=== PATIENT | female | born 1950 | race Caucasian/White ===

== ENCOUNTER 2018-09-03 02:17 | Inpatient (IN) | payer BC, MEDICARE ==
[~2018-09-03] VITALS: Ht 165.1 cm; Wt 70.0 kg
[2018-09-03] VITALS (19 sets, daily range): BP systolic 98–182; BP diastolic 50–100
--- NOTE | 2018-09-03 02:35 | NUR ---
Noted the analgesic administration prior to arrival to this ER. Patient cursing and slurring words, requesting something for "fucking pain". This was endorsed to ERP.
[2018-09-03] MEDS ORDERED: LIDOcaine 1% 30ml preserv. free vial IJ STA (02:40)
[2018-09-03] MEDS ORDERED: enalaprilat dihydrate 2.5mg/2ml vial IV PRN ×2 (04:45→16:25)
[2018-09-03] MEDS ORDERED: acetaminophen 325mg tablet PO PRN (04:45)
[2018-09-03] MEDS ORDERED: morphine/NS 5 mg/ml CADD 50 ML IV SCH (04:45)
[2018-09-03] MEDS ORDERED: naloxone 0.4 mg/ml inj IV PRN (04:45)
[2018-09-03] MEDS ORDERED: CADD PCA waste documentation MC PRN ×2 (04:45→23:25)
[2018-09-03] MEDS ORDERED: ondansetron/PF 4mg/2ml inj IV PRN ×3 (04:45→16:35)
[2018-09-03] MEDS ORDERED: LISI-600 PO (05:18)
[2018-09-03] MEDS ORDERED: DULO-31 PO (05:18)
[2018-09-03] MEDS ORDERED: METH5TAB2 PO (05:18)
[2018-09-03] MEDS ORDERED: AMIT-189 PO (05:18)
[2018-09-03] MEDS ORDERED: PHE12.5T PO (05:19)
[2018-09-03] MEDS: normal saline 1000ml 1,000 ML IV SCH ×3 (05:50→23:29)
--- NOTE | 2018-09-03 05:51 | NUR ---
patient report received and patient brought to room. skin checked and IV fluids started. Morphine ordered from pharmacy in order to start CADD.
[2018-09-03 06:47] LABS: INR 1.1 INR; PARTIAL THROMBOPLASTIN TIME 30 SECONDS (22-32); PROTHROMBIN TIME 10.7 SECONDS (9.0-12.0)
[2018-09-03 06:50] LABS: ALANINE AMINOTRANSFERASE 23 U/L (12-78); ALBUMIN 3.5 G/DL (3.4-5.0); ALBUMIN/GLOBULIN RATIO 1.2 (1.1-1.5); ALKALINE PHOSPHATASE 89 IU/L (46-116); ANION GAP 11 (8-16); ASPARTATE AMINO TRANSFERASE 27 U/L (10-37); BILIRUBIN,TOTAL 0.5 MG/DL (0.1-1.0); BLOOD UREA NITROGEN 15 MG/DL (7-18); BUN/CREATININE RATIO 10.9 (6.6-38.0); CALCIUM 9.2 MG/DL (8.5-10.1); CHLORIDE 104 MMOL/L (99-107); CREATININE 1.37 MG/DL (0.40-0.90); GLUCOSE 145 MG/DL (70-104); MAGNESIUM 1.5 MG/DL (1.5-2.4); POTASSIUM 4.2 MMOL/L (3.5-5.1); SODIUM 138 MMOL/L (135-145); TOTAL PROTEIN 6.5 G/DL (6.4-8.2); eGFR 38 ML/MIN
[2018-09-03 06:53] LABS: BASOPHILS % (AUTO) 0.2 % (0-1); EOSINOPHILS % (AUTO) 0.2 % (0-6); HEMATOCRIT 34.3 % (35.0-45.0); HEMOGLOBIN 11.6 g/dl (12.0-16.0); LYMPHOCYTES # (AUTO) 0.7 X10'3 (1.1-4.8); LYMPHOCYTES % (AUTO) 6.8 % (21-51); MEAN CORPUSCULAR HEMOGLOBIN 31.8 PG (27.0-31.0); MEAN CORPUSCULAR HGB CONC 33.7 g/dL (33.0-36.5); MEAN CORPUSCULAR VOLUME 94.4 FL (78-98); MEAN PLATELET VOLUME 9.6 FL (7.4-10.4); MONOCYTES # (AUTO) 0.6 X10'3 (0-0.9); MONOCYTES % (AUTO) 6.5 % (2-12); NEUTROPHILS # (AUTO) 8.6 X10'3 (1.8-7.7); NEUTROPHILS % (AUTO) 86.3 % (42-75); PLATELET COUNT 160 X10'3 (140-440); RED BLOOD COUNT 3.64 X10'6 (4.20-5.60); RED CELL DISTRIBUTION WIDTH 12.5 % (11.5-14.5); WHITE BLOOD COUNT 9.9 X10'3 (4.5-11.0)
[2018-09-03] MEDS ORDERED: LORazepam 2 mg/ml vial IV ONE (06:55)
[2018-09-03 06:58] LABS: TROPONIN I < 0.04 NG/ML (0.0-0.05)
[2018-09-03] MEDS: morphine/NS 5 mg/ml CADD 50 ML IV SCH ×6 (09:00→21:00)
[2018-09-03] MEDS ORDERED: ringers solution, lacted 1,000 ML IV ONE (11:03)
[2018-09-03] MEDS ORDERED: PROMETHAZINE HCL PO PRN (11:15)
[2018-09-03] MEDS ORDERED: methadone 10mg tablet PO ONE (11:25)
[2018-09-03] MEDS ORDERED: proMETHazine 25mg tablet PO PRN (11:30)
--- NOTE | 2018-09-03 11:30 | NUR ---
Student documentation: I have reviewed all interventions, assessments performed and documented by Anastasia Arreaga. Student Medication Administration: For this medication-pass time frame, all medication were reviewed, dispensed, administered and documented per hospital policy by Anastasia Arreaga.
[2018-09-03] MEDS ORDERED: ceFAZolin 1GM/D5W- ADD-VANTAGE 50 ML IV ONE (12:00)
[2018-09-03] MEDS: methadone 5mg tablet PO SCH ×2 (14:00→21:03)
--- NOTE | 2018-09-03 14:25 | NUR ---
PATIENT TO THE OR. Addendum: 09/03/18 at 1445 by Ryan Jose RN REPORT CALLED TO BERT ALFARO IN PACU.
[2018-09-03] MEDS ORDERED: sevoflurane 250ml liquid IH ONE (15:19)
[2018-09-03] MEDS ORDERED: LIDOcaine 1%/PF 5ML 10 MG/ML VIAL ONE (15:19)
[2018-09-03] MEDS ORDERED: tetracaine 1% (10mg/ml) pres. free inj. ONE (15:22)
[2018-09-03] MEDS ORDERED: morphine /PF 1mg/ml 10ml inj. ONE (15:23)
[2018-09-03] MEDS ORDERED: MIDAZolam 1mg/ml 10ml vial ONE (15:23)
[2018-09-03] MEDS ORDERED: fentaNYL/PF 50MCG/1 ML 2ML syringe ONE ×2 (15:24→18:03)
[2018-09-03] MEDS ORDERED: fentaNYL /PF 50mcg/ml 5ml ampule ONE (15:29)
[2018-09-03] MEDS ORDERED: propofol inj 20 ML IV ONE (16:18)
[2018-09-03] MEDS ORDERED: hydrALAZINE 20mg/ml inj. IV PRN (16:25)
[2018-09-03] MEDS ORDERED: ringers solution, lacted 1,000 ML IV SCH (16:25)
[2018-09-03] MEDS ORDERED: HYDROmorphone inj. 0.5 MG/0.5 ML DISP.SYRIN IV PRN ×2 (16:25)
[2018-09-03] MEDS ORDERED: morphine 4 MG/ML inj SYRINge IV PRN ×2 (16:25)
[2018-09-03] MEDS ORDERED: albumin (Human) 5% 250ml 250 ML IV ONE ×2 (16:28→16:37)
[2018-09-03] MEDS ORDERED: diphenhydrAMINE 50 mg/ml inj IV PRN (16:35)
[2018-09-03] MEDS ORDERED: phenylephrine 10mg/ml inj. ONE (16:38)
[2018-09-03] MEDS ORDERED: vancomycin 1,000mg inj ONE (17:08)
--- NOTE | 2018-09-03 18:17 | NUR ---
Received from OR via ORTHO BED WITH [facility] , accompanied by Anesthesiologist EDUARDO and report given by Anesthesiolgist. PATIENT WITH 20G PIV IN RIGHT UE RUNNING LR AT 100. COLE CATHETER PRESENT WITH CLEAR YELLOW URINE PRESENT. LEFT HIP DRESSING IS CDI. NO DRAINAGE PRESENT, + DORSALIS PEDIS. 10L MASK ON WITH 100% SATURATIONS. VSS Addendum: 09/03/18 at 1830 by Wolfgang Muniz RN, RN Amended: Links added.
--- NOTE | 2018-09-03 18:20 | NUR ---
Problems reprioritized. Patient report given, questions answered & plan of care reviewed with FRANCIA ALFARO.
--- NOTE | 2018-09-03 19:08 | NUR ---
ALL DC CRITERIA FOR TRANSFER TO FLOOR HAS BEEN ACHIEVED. ROOFER HELPER VINYL COATING IN USE AND CONSTANT EDUCATION AND REMINDER TO USE ROOFER HELPER VINYL COATING GIVEN. PATIENT VSS AT THIS TIME. RN PRESENT TO ACCEPT CARE OF PATIENT UPON ARRIVAL, VSS. BED LOW, CALL LIGHT AND ROOFER HELPER VINYL COATING IN HAND. ADVISED RN FRANCIA TO OLIVE A BED ALARM FOR PATIENT SAFETY. SPINAL LEVEL UPON EXITING RR WAS L1-L2 AREA. + DP STILL PRESENT TO LEFT FOOT AND OCCLUSIVE DRESSING TO LEFT HIP IS STILL CDI. Addendum: 09/03/18 at 1911 by Wolfgang Winslow - ANGELINA RN Amended: Links added.
[2018-09-03] MEDS: LORazepam 1 MG tablet PO PRN (20:12)
[2018-09-03] MEDS: amitryptiline 50mg tablet PO SCH (20:12)
--- NOTE | 2018-09-03 22:58 | NUR ---
Ian BLEVINS paged for pt 193/97 BP, 142 BPM HR, 10/10 pain not responding to CADD
[2018-09-03] MEDS: HYDROmorphone/NS 1 mg/ml CADD 50 ML IV SCH (23:25)
[2018-09-03] MEDS: cefazolin/dext.iso 2gm/100ml 100 ML IV SCH (23:27)
--- NOTE | 2018-09-03 23:53 | NUR ---
I cosigned to increase the morphine cadd to 1.5mg bolus around 22;15 with Ismael RN, the cadd has been stopped and changed to Dilaudid now so we can't go back and document this unfortunately.
[2018-09-04] VITALS (14 sets, daily range): BP systolic 128–161; BP diastolic 70–90
[2018-09-04] MEDS: HYDROmorphone/NS 1 mg/ml CADD 50 ML IV SCH ×12 (00:04→23:00)
[2018-09-04] MEDS: methadone 5mg tablet PO SCH ×4 (02:00→20:38)
--- NOTE | 2018-09-04 02:02 | NUR ---
Patient repeatedly removed O2 probe during post op vitals, and moved continuously. o2 readings not charted for this reason, and BP may be inaccurate throughout post op vitals.
[2018-09-04] MEDS: LORazepam 1 MG tablet PO PRN ×2 (02:10→10:34)
--- NOTE | 2018-09-04 03:46 | NUR ---
Ian BLEVINS paged for pt HR of 143 and BP of 179/89
--- NOTE | 2018-09-04 03:55 | NUR ---
Ian BLEVINS made aware of PT BP and HR, and pain level. Orders for continuous pulse ox and to increase dilaudid cadd per protocol. Continuing to monitor pt closely
[2018-09-04] MEDS ORDERED: vancomycin/NS 1 GM ADD-VANTAGE 250 ML IV ONE (04:20)
--- NOTE | 2018-09-04 06:10 | NUR ---
Patient in room ORTHO 4009. I have received report from FRANCIA ALFARO and had the opportunity to ask questions and assume patient care.
--- NOTE | 2018-09-04 06:29 | NUR ---
Problems reprioritized. Patient report given, questions answered & plan of care reviewed with Ryan ALFARO.
[2018-09-04 07:07] LABS: BASOPHILS % (AUTO) 0.1 % (0-1); EOSINOPHILS % (AUTO) 0 % (0-6); HEMATOCRIT 22.4 % (35.0-45.0); HEMOGLOBIN 7.4 g/dl (12.0-16.0); LYMPHOCYTES # (AUTO) 0.4 X10'3 (1.1-4.8); MEAN CORPUSCULAR HEMOGLOBIN 31.9 PG (27.0-31.0); MEAN CORPUSCULAR HGB CONC 33.1 g/dL (33.0-36.5); MEAN CORPUSCULAR VOLUME 96.3 FL (78-98); MEAN PLATELET VOLUME 9.6 FL (7.4-10.4); MONOCYTES # (AUTO) 0.8 X10'3 (0-0.9); MONOCYTES % (AUTO) 8.6 % (2-12); NEUTROPHILS # (AUTO) 7.5 X10'3 (1.8-7.7); NEUTROPHILS % (AUTO) 86.3 % (42-75); PLATELET COUNT 108 X10'3 (140-440); RED BLOOD COUNT 2.32 X10'6 (4.20-5.60); RED CELL DISTRIBUTION WIDTH 12.1 % (11.5-14.5); WHITE BLOOD COUNT 8.7 X10'3 (4.5-11.0)
[2018-09-04 07:27] LABS: ALANINE AMINOTRANSFERASE 29 U/L (12-78); ALBUMIN/GLOBULIN RATIO 1.1 (1.1-1.5); ALKALINE PHOSPHATASE 57 IU/L (46-116); ANION GAP 8 (8-16); ASPARTATE AMINO TRANSFERASE 80 U/L (10-37); BILIRUBIN,TOTAL 0.8 MG/DL (0.1-1.0); BLOOD UREA NITROGEN 12 MG/DL (7-18); BUN/CREATININE RATIO 10.2 (6.6-38.0); CALCIUM 8.4 MG/DL (8.5-10.1); CHLORIDE 103 MMOL/L (99-107); CREATININE 1.18 MG/DL (0.40-0.90); GLUCOSE 144 MG/DL (70-104); POTASSIUM 3.6 MMOL/L (3.5-5.1); SODIUM 137 MMOL/L (135-145); TOTAL CARBON DIOXIDE 25.8 MMOL/L (24-32); TOTAL PROTEIN 5.7 G/DL (6.4-8.2); eGFR 46 ML/MIN
[2018-09-04] MEDS: lisinopril 20mg tablet PO SCH (07:43)
[2018-09-04] MEDS: cefazolin/dext.iso 2gm/100ml 100 ML IV SCH ×2 (07:43→16:00)
[2018-09-04] MEDS: aspirin 325mg tablet, delayed-release (Ecotrin) PO SCH (07:44)
[2018-09-04] MEDS: duloxetine 30mg CAPSULE.DR PO SCH (07:44)
[2018-09-04] MEDS ORDERED: enoxaparin 40mg/0.4ml syringe SUBCUT SCH (08:00)
[2018-09-04] MEDS: normal saline 1000ml 1,000 ML IV SCH ×2 (10:42→22:16)
--- NOTE | 2018-09-04 17:05 | NUR ---
PAGER ID: [phone] MESSAGE: [id number] [phone] RE: BLOOD BANK SAYS ONLY ONE UNIT ORDERED, CHECKING HGB NOW. DO YOU WANT ANOTHER ONE?
[2018-09-04 17:29] LABS: HEMATOCRIT 25.1 % (35.0-45.0); HEMOGLOBIN 8.4 g/dl (12.0-16.0); MEAN CORPUSCULAR HEMOGLOBIN 31.1 PG (27.0-31.0); MEAN CORPUSCULAR HGB CONC 33.5 g/dL (33.0-36.5); MEAN PLATELET VOLUME 9.7 FL (7.4-10.4); PLATELET COUNT 106 X10'3 (140-440); RED BLOOD COUNT 2.69 X10'6 (4.20-5.60); RED CELL DISTRIBUTION WIDTH 12.9 % (11.5-14.5)
--- NOTE | 2018-09-04 18:37 | NUR ---
Patient in room ORTHO 4009. I have received report from Ryan ALFARO and had the opportunity to ask questions and assume patient care.
[2018-09-04] MEDS: docusate sod 100mg capsule PO SCH (20:37)
[2018-09-04] MEDS: sennosides 8.6mg tablet PO SCH (20:38)
[2018-09-04] MEDS: amitryptiline 50mg tablet PO SCH (20:38)
[2018-09-05] MEDS: HYDROmorphone/NS 1 mg/ml CADD 50 ML IV SCH ×10 (01:00→19:00)
[2018-09-05] MEDS: methadone 5mg tablet PO SCH ×4 (02:32→20:37)
[2018-09-05 06:00] VITALS: BP 107/66
--- NOTE | 2018-09-05 06:44 | NUR ---
Problems reprioritized. Patient report given, questions answered & plan of care reviewed with Jose Juan ALFARO.
[2018-09-05 06:54] LABS: BASOPHILS % (AUTO) 0.3 % (0-1); EOSINOPHILS # (AUTO) 0.1 X10'3 (0-0.9); HEMATOCRIT 26.1 % (35.0-45.0); HEMOGLOBIN 8.9 g/dl (12.0-16.0); LYMPHOCYTES # (AUTO) 1.1 X10'3 (1.1-4.8); LYMPHOCYTES % (AUTO) 12.5 % (21-51); MEAN CORPUSCULAR HEMOGLOBIN 31.7 PG (27.0-31.0); MEAN CORPUSCULAR HGB CONC 33.9 g/dL (33.0-36.5); MEAN CORPUSCULAR VOLUME 93.6 FL (78-98); MEAN PLATELET VOLUME 9.4 FL (7.4-10.4); MONOCYTES # (AUTO) 0.9 X10'3 (0-0.9); MONOCYTES % (AUTO) 10.1 % (2-12); NEUTROPHILS # (AUTO) 6.8 X10'3 (1.8-7.7); NEUTROPHILS % (AUTO) 76.1 % (42-75); PLATELET COUNT 106 X10'3 (140-440); RED BLOOD COUNT 2.79 X10'6 (4.20-5.60); RED CELL DISTRIBUTION WIDTH 13.4 % (11.5-14.5); WHITE BLOOD COUNT 8.9 X10'3 (4.5-11.0)
--- NOTE | 2018-09-05 07:01 | NUR ---
Patient in room ORTHO 4009. I have received report from Silvia ALFARO and had the opportunity to ask questions and assume patient care.
[2018-09-05 07:13] LABS: ALANINE AMINOTRANSFERASE 39 U/L (12-78); ALBUMIN 2.4 G/DL (3.4-5.0); ALBUMIN/GLOBULIN RATIO 0.9 (1.1-1.5); ALKALINE PHOSPHATASE 70 IU/L (46-116); ANION GAP 6 (8-16); ASPARTATE AMINO TRANSFERASE 103 U/L (10-37); BILIRUBIN,TOTAL 1.4 MG/DL (0.1-1.0); BLOOD UREA NITROGEN 12 MG/DL (7-18); CALCIUM 8.6 MG/DL (8.5-10.1); CHLORIDE 105 MMOL/L (99-107); CREATININE 1.09 MG/DL (0.40-0.90); GLUCOSE 106 MG/DL (70-104); POTASSIUM 3.9 MMOL/L (3.5-5.1); SODIUM 137 MMOL/L (135-145); TOTAL CARBON DIOXIDE 25.6 MMOL/L (24-32); TOTAL PROTEIN 5.2 G/DL (6.4-8.2); eGFR 50 ML/MIN
[2018-09-05] MEDS: normal saline 1000ml 1,000 ML IV SCH ×2 (07:54→17:15)
[2018-09-05] MEDS: docusate sod 100mg capsule PO SCH ×2 (07:56→20:37)
[2018-09-05] MEDS: aspirin 325mg tablet, delayed-release (Ecotrin) PO SCH (07:56)
[2018-09-05] MEDS: lisinopril 20mg tablet PO SCH (07:58)
[2018-09-05 08:00] VITALS: BP 114/63
[2018-09-05] MEDS: duloxetine 30mg CAPSULE.DR PO SCH (08:06)
[2018-09-05 10:00] VITALS: BP 133/78
--- NOTE | 2018-09-05 17:59 | NUR ---
Problems reprioritized. Patient report given, questions answered & plan of care reviewed with Silvia ALFARO.
[2018-09-05 18:00] VITALS: BP 138/75
--- NOTE | 2018-09-05 18:20 | NUR ---
Patient in room ORTHO 4009. I have received report from Jose Juan ALFARO and had the opportunity to ask questions and assume patient care.
[2018-09-05] MEDS ORDERED: oxyCODONE IR 5mg (immed. release) tablet PO PRN (19:50)
[2018-09-05] MEDS: amitryptiline 50mg tablet PO SCH (20:37)
[2018-09-05] MEDS: sennosides 8.6mg tablet PO SCH (20:37)
[2018-09-05] MEDS ORDERED: CADD PCA waste documentation MC PRN (20:45)
[2018-09-05 22:00] VITALS: BP 138/77
[2018-09-06] MEDS: methadone 5mg tablet PO SCH ×4 (02:17→20:49)
[2018-09-06] MEDS: normal saline 1000ml 1,000 ML IV SCH ×3 (02:17→21:37)
[2018-09-06 05:00] VITALS: BP 130/71
--- NOTE | 2018-09-06 05:54 | NUR ---
Jose Enrique cotton. brad provided.
--- NOTE | 2018-09-06 06:30 | NUR ---
Patient in room ORTHO 4009. I have received report from Silvia ALFARO and had the opportunity to ask questions and assume patient care.
--- NOTE | 2018-09-06 06:31 | NUR ---
Problems reprioritized. Patient report given, questions answered & plan of care reviewed with Jose Juan ALFARO.
[2018-09-06 07:51] LABS: BASOPHILS % (AUTO) 0.2 % (0-1); EOSINOPHILS # (AUTO) 0.2 X10'3 (0-0.9); EOSINOPHILS % (AUTO) 2.9 % (0-6); HEMATOCRIT 26.8 % (35.0-45.0); HEMOGLOBIN 9.3 g/dl (12.0-16.0); LYMPHOCYTES # (AUTO) 0.9 X10'3 (1.1-4.8); LYMPHOCYTES % (AUTO) 10.5 % (21-51); MEAN CORPUSCULAR HEMOGLOBIN 32.2 PG (27.0-31.0); MEAN CORPUSCULAR HGB CONC 34.5 g/dL (33.0-36.5); MEAN CORPUSCULAR VOLUME 93.3 FL (78-98); MEAN PLATELET VOLUME 9.7 FL (7.4-10.4); MONOCYTES # (AUTO) 0.7 X10'3 (0-0.9); MONOCYTES % (AUTO) 8.6 % (2-12); NEUTROPHILS # (AUTO) 6.7 X10'3 (1.8-7.7); NEUTROPHILS % (AUTO) 77.8 % (42-75); PLATELET COUNT 128 X10'3 (140-440); RED BLOOD COUNT 2.88 X10'6 (4.20-5.60); RED CELL DISTRIBUTION WIDTH 13.3 % (11.5-14.5); WHITE BLOOD COUNT 8.6 X10'3 (4.5-11.0)
[2018-09-06] MEDS: aspirin 325mg tablet, delayed-release (Ecotrin) PO SCH (08:04)
[2018-09-06] MEDS: lisinopril 20mg tablet PO SCH (08:04)
[2018-09-06] MEDS: docusate sod 100mg capsule PO SCH ×2 (08:04→20:49)
[2018-09-06] MEDS: duloxetine 30mg CAPSULE.DR PO SCH (08:04)
[2018-09-06 08:05] LABS: ALANINE AMINOTRANSFERASE 62 U/L (12-78); ALBUMIN 2.2 G/DL (3.4-5.0); ALBUMIN/GLOBULIN RATIO 0.7 (1.1-1.5); ALKALINE PHOSPHATASE 181 IU/L (46-116); ANION GAP 9 (8-16); ASPARTATE AMINO TRANSFERASE 121 U/L (10-37); BILIRUBIN,TOTAL 1.2 MG/DL (0.1-1.0); BLOOD UREA NITROGEN 10 MG/DL (7-18); BUN/CREATININE RATIO 9.9 (6.6-38.0); CALCIUM 8.5 MG/DL (8.5-10.1); CHLORIDE 102 MMOL/L (99-107); CREATININE 1.01 MG/DL (0.40-0.90); GLUCOSE 107 MG/DL (70-104); POTASSIUM 3.4 MMOL/L (3.5-5.1); SODIUM 135 MMOL/L (135-145); TOTAL CARBON DIOXIDE 23.6 MMOL/L (24-32); TOTAL PROTEIN 5.5 G/DL (6.4-8.2); eGFR 55 ML/MIN
[2018-09-06 10:00] VITALS: BP 148/80
--- NOTE | 2018-09-06 10:34 | NUR ---
Paged Dr. Jennings Patients K is 3.4 can I start her on replacement protocol, will continue to monitor
[2018-09-06] MEDS ORDERED: potassium Cl 20 mEq SR tablet PO PRN (10:55)
[2018-09-06] MEDS ORDERED: magnesium 4gm in 100ml NS 100 ML IV PRN (10:55)
[2018-09-06] MEDS ORDERED: potassium Cl 40MEQ/NS 500ml 500 ML IV PRN ×2 (10:55)
[2018-09-06] MEDS: potassium Cl 20 mEq SR tablet PO PRN ×3 (11:07→23:03)
[2018-09-06] MEDS: oxyCODONE IR 5mg (immed. release) tablet PO PRN ×2 (11:09→17:47)
[2018-09-06] MEDS: LORazepam 1 MG tablet PO PRN (12:18)
[2018-09-06 18:00] VITALS: BP 139/76
--- NOTE | 2018-09-06 18:28 | NUR ---
Problems reprioritized. Patient report given, questions answered & plan of care reviewed with Aminata ALFARO.
[2018-09-06] MEDS: sennosides 8.6mg tablet PO SCH (21:37)
[2018-09-06] MEDS: amitryptiline 50mg tablet PO SCH (21:37)
[2018-09-06 22:00] VITALS: BP 148/73
[2018-09-07] MEDS: methadone 5mg tablet PO SCH ×3 (02:14→14:05)
[2018-09-07 06:00] VITALS: BP 117/62
[2018-09-07 06:28] LABS: BASOPHILS % (AUTO) 0.2 % (0-1); EOSINOPHILS # (AUTO) 0.4 X10'3 (0-0.9); EOSINOPHILS % (AUTO) 5.7 % (0-6); HEMATOCRIT 24.2 % (35.0-45.0); HEMOGLOBIN 8.4 g/dl (12.0-16.0); LYMPHOCYTES # (AUTO) 0.9 X10'3 (1.1-4.8); LYMPHOCYTES % (AUTO) 12.2 % (21-51); MEAN CORPUSCULAR HEMOGLOBIN 32.3 PG (27.0-31.0); MEAN CORPUSCULAR HGB CONC 34.7 g/dL (33.0-36.5); MEAN CORPUSCULAR VOLUME 93.1 FL (78-98); MEAN PLATELET VOLUME 9.2 FL (7.4-10.4); MONOCYTES # (AUTO) 0.8 X10'3 (0-0.9); MONOCYTES % (AUTO) 10.7 % (2-12); NEUTROPHILS # (AUTO) 5.1 X10'3 (1.8-7.7); NEUTROPHILS % (AUTO) 71.2 % (42-75); PLATELET COUNT 179 X10'3 (140-440); RED CELL DISTRIBUTION WIDTH 13.1 % (11.5-14.5); WHITE BLOOD COUNT 7.2 X10'3 (4.5-11.0)
[2018-09-07 06:39] LABS: ALANINE AMINOTRANSFERASE 88 U/L (12-78); ALBUMIN 2.1 G/DL (3.4-5.0); ALBUMIN/GLOBULIN RATIO 0.6 (1.1-1.5); ALKALINE PHOSPHATASE 250 IU/L (46-116); ANION GAP 8 (8-16); ASPARTATE AMINO TRANSFERASE 137 U/L (10-37); BILIRUBIN,TOTAL 1.8 MG/DL (0.1-1.0); BLOOD UREA NITROGEN 9 MG/DL (7-18); BUN/CREATININE RATIO 10.1 (6.6-38.0); CALCIUM 8.7 MG/DL (8.5-10.1); CHLORIDE 104 MMOL/L (99-107); CREATININE 0.89 MG/DL (0.40-0.90); GLUCOSE 111 MG/DL (70-104); MAGNESIUM 1.6 MG/DL (1.5-2.4); POTASSIUM 3.9 MMOL/L (3.5-5.1); SODIUM 137 MMOL/L (135-145); TOTAL CARBON DIOXIDE 24.9 MMOL/L (24-32); TOTAL PROTEIN 5.4 G/DL (6.4-8.2); eGFR 63 ML/MIN
[2018-09-07] MEDS: duloxetine 30mg CAPSULE.DR PO SCH (08:01)
[2018-09-07] MEDS: docusate sod 100mg capsule PO SCH (08:01)
[2018-09-07] MEDS: lisinopril 20mg tablet PO SCH (08:02)
[2018-09-07] MEDS: aspirin 325mg tablet, delayed-release (Ecotrin) PO SCH (08:02)
[2018-09-07] MEDS ORDERED: methylnaltrexone br 12mg/0.6ml inj***SubQ only SQ SCH (09:25)
[2018-09-07] MEDS ORDERED: METH12DI SQ (13:25)
[2018-09-07 15:00] VITALS: BP 139/84
== END 2018-09-07 16:00 | DRG 467 ==
LOC: ER 02:18 → ED HOLD 04:42 → CMPBEDREQ 05:53 → ORTHO 4S 05:54
PROVIDERS: ADMIT Internal Medicine; ATTEND Family Medicine
PROC: 0SPS0JZ Removal of Synthetic Substitute from Left Hip Joint, Femoral Surface, Open Approach (ICD-10-PCS; 2018-09-03)
PROC: 0QS904Z Reposition Left Femoral Shaft with Internal Fixation Device, Open Approach (ICD-10-PCS; 2018-09-03)
PROC: 3E0T3BZ Introduction of Anesthetic Agent into Peripheral Nerves and Plexi, Percutaneous Approach (ICD-10-PCS; 2018-09-03)
PROC: 0SRS0JZ Replacement of Left Hip Joint, Femoral Surface with Synthetic Substitute, Open Approach (ICD-10-PCS; principal; 2018-09-03 15:24)
PROC: 30233N1 Transfusion of Nonautologous Red Blood Cells into Peripheral Vein, Percutaneous Approach (ICD-10-PCS; 2018-09-04)
DX: S72.322A Displaced transverse fracture of shaft of left femur, initial encounter for closed fracture (principal); M97.02XA Periprosthetic fracture around internal prosthetic left hip joint, initial encounter; F11.23 Opioid dependence with withdrawal; F41.9 Anxiety disorder, unspecified; G89.4 Chronic pain syndrome; I25.10 Atherosclerotic heart disease of native coronary artery without angina pectoris; Z96.611 Presence of right artificial shoulder joint; Z96.612 Presence of left artificial shoulder joint; Z96.643 Presence of artificial hip joint, bilateral; Z96.653 Presence of artificial knee joint, bilateral; R74.8 Abnormal levels of other serum enzymes; N18.3 Chronic kidney disease, stage 3 (moderate); I12.9 Hypertensive chronic kidney disease with stage 1 through stage 4 chronic kidney disease, or unspecified chronic kidney disease; R00.0 Tachycardia, unspecified; D64.9 Anemia, unspecified; W01.0XXA Fall on same level from slipping, tripping and stumbling without subsequent striking against object, initial encounter; Y93.89 Activity, other specified; Z79.82 Long term (current) use of aspirin; Z79.899 Other long term (current) drug therapy; Z85.3 Personal history of malignant neoplasm of breast; Y92.89 Other specified places as the place of occurrence of the external cause; Y99.8 Other external cause status; Z92.3 Personal history of irradiation
CPT/HCPCS: 64450; 99285; Z7506; 36415; 71045; 72170; 73551; 73552; 80053; 83735; 84484; 85025; 85027; 85610; 85730; 86885; 86900; 86901; 86920; 87070; 93005; 97110; 97116; 97162; 97530; A6223; A6253; A6449; A6454; A7000; C1776; G0378; J0690; J1170; J2001; J2060; J2250; J2270; J2274; J2370; J2704; J3010; J3370; J3490; J7030; J7120; P9016; P9045